=== PATIENT | female | born 1995 | race Caucasian/White ===

== ENCOUNTER 2017-11-25 14:20 | Outpatient (CLI) | payer OTHER | END 2017-11-25 14:25 | disposition home or self-care (01) | LOC: RAD 14:20 → TOM 14:20 → RAD 14:25 → TOM 14:25 | DX: J01.80 Other acute sinusitis (principal); J01.01 Acute recurrent maxillary sinusitis ==

== ENCOUNTER 2023-05-19 20:25 | Emergency (ER) | payer OTHER ==
[~2023-05-19] VITALS: Ht 165.1 cm; Wt 77.1 kg
[2023-05-19 21:39] LABS: HEMATOCRIT 37.5 % (36.0-45.00); HEMOGLOBIN 12.8 g/dL (12.0-15.00); MEAN CORPUSCULAR HEMOGLOBIN 28.7 pg (27.00-32.0); MEAN CORPUSCULAR HGB CONC 34.2 g/dl (32.0-36.0); PLATELET COUNT 215 K/uL (150-450); RED BLOOD COUNT 4.46 M/uL (4.00-6.00); RED CELL DISTRIBUTION WIDTH 13.6 % (11.5-14.5)
[2023-05-19 21:54] LABS: URINE APPEARANCE Cloudy; URINE BACTERIA 148.6 uL (0.0-1933); URINE BILIRRUBIN Negative (NEGATIVE); URINE BLOOD Negative; URINE COLOR Yellow; URINE EPITHELIAL CELLS 8.8 uL (0.0-38.8); URINE GLUCOSE Negative (NEGATIVE); URINE LEUKOCYTE Trace; URINE NITRATE Negative; URINE PROTEIN Negative (NEGATIVE); URINE RBC 18.3 uL (0.0-20.8); URINE UROBILINOGEN 0.2 E.U./dl; URINE WBC 24.7 uL (0.0-23.2)
[2023-05-19 21:58] LABS: ALBUMIN 3.8 gm/dL (3.4-5.0); CALCIUM 9.5 mg/dL (8.5-10.1); CREATININE SERUM 0.82 mg/dL (0.55-1.02); GFR 83.62; GLOBULINA 3.5 G/DL (2.4-3.5); POTASSIUM 3.9 mEq/L (3.5-5.1); TOTAL PROTEIN 7.3 gm/dL (6.4-8.2)
[2023-05-20] MEDS ORDERED: KETO10TA2 PO (02:35)
== END 2023-05-20 | disposition home or self-care (01) ==
LOC: ER 20:26
PROVIDERS: General Practice
DX: N83.209 Unspecified ovarian cyst, unspecified side (principal); R10.2 Pelvic and perineal pain